=== PATIENT | male | born 1960 | race Two or more races ===

== ENCOUNTER 2017-04-27 13:30 | Emergency (ER) | payer MEDICAID, OTHER ==
[~2017-04-27] VITALS: Ht 167.6 cm; Wt 77.0 kg
[2017-04-27] MEDS ORDERED: SODIUM CHLORIDE 0.9% 1,000 ML IV ONE (17:44)
[2017-04-27] MEDS ORDERED: ONDANSETRON HCL 4MG/2ML VIAL IV STA (17:44)
[2017-04-27] MEDS ORDERED: KETOROLAC 30MG/ML VIAL IV STA (17:44)
[2017-04-27 18:08] LABS: BASOPHILS % 1.5 % (0.0-2.0); EOSINOPHILS % 3.6 % (0.0-5.0); HEMOGLOBIN. 15.7 g/dL (14.0-18.0); LYMPHOCYTES % 23.3 % (20.0-50.0); MEAN CORPUSCULAR HEMOGLOBIN 30.2 pg (28.0-32.0); MEAN CORPUSCULAR VOLUME 88.4 fL (80.0-94.0); MONOCYTES % 9.7 % (2.0-8.0); NEUTROPHILS % 61.9 % (40.0-76.0); PLATELET 188 x1000/uL (130-400); RED BLOOD CELL COUNT 5.21 mill/uL (4.7-6.1)
[2017-04-27 18:18] LABS: CARBON DIOXIDE 28 mEq/L (21-32); CHLORIDE 108 mEq/L (98-107)
[2017-04-27 19:52] VITALS: BP 130/127
== END 2017-04-27 20:05 | disposition home or self-care (01) ==
LOC: ER 16:42
DX: R51 Headache (principal); E11.9 Type 2 diabetes mellitus without complications; H53.8 Other visual disturbances
CPT/HCPCS: 36415; 80053; 82962; 85025; 96374; 96375; 99284; J1885; J2405; J7030; Z7610

== ENCOUNTER 2020-08-16 13:52 | Emergency (ER) | payer MEDICAID ==
[~2020-08-16] VITALS: Ht 170.2 cm; Wt 75.7 kg
[2020-08-16 14:11] VITALS: BP 149/101
== END 2020-08-16 16:28 | disposition home or self-care (01) ==
LOC: ER 13:52
DX: S09.90XA Unspecified injury of head, initial encounter (principal); E11.9 Type 2 diabetes mellitus without complications; I10 Essential (primary) hypertension; W01.0XXA Fall on same level from slipping, tripping and stumbling without subsequent striking against object, initial encounter; Y93.89 Activity, other specified; Y92.524 Gas station as the place of occurrence of the external cause
CPT/HCPCS: 99284

== ENCOUNTER 2023-01-11 18:30 | Emergency (ER) | payer MEDICAID ==
[~2023-01-11] VITALS: Ht 170.2 cm; Wt 72.0 kg
[2023-01-11 18:43] VITALS: BP 151/92
[2023-01-11 19:07] LABS: BASOPHILS % 0.8 % (0.0-2.0); EOSINOPHILS % 3.5 % (0.0-5.0); HEMATOCRIT. 45.4 % (42.0-52.0); HEMOGLOBIN. 15.5 g/dL (14.0-18.0); LYMPHOCYTES % 21.3 % (20.0-50.0); MEAN CORPUSCULAR HEMOGLOBIN 30.4 pg (28.0-32.0); MEAN CORPUSCULAR VOLUME 89.1 fL (80.0-94.0); MEAN PLATELET VOLUME 9.4 fl (7.4-10.4); MONOCYTES % 9.8 % (2.0-8.0); NEUTROPHILS % 64.6 % (40.0-76.0); PLATELET 183 x1000/uL (130-400); RED BLOOD CELL COUNT 5.09 mill/uL (4.7-6.1); RED CELL DISTRIBUTION WIDTH 12.8 % (11.6-14.6)
[2023-01-11 19:15] LABS: PROTHROMBIN TIME 11.1 sec (9.6-11.0)
[2023-01-11 19:26] LABS: CHLORIDE 104 mEq/L (98-107)
== END 2023-01-11 23:23 | disposition left against medical advice (07) ==
LOC: ER 18:30
DX: Z53.21 Procedure and treatment not carried out due to patient leaving prior to being seen by health care provider (principal)
CPT/HCPCS: 36415; 80053; 82962; 85025; 99281

== ENCOUNTER 2023-07-08 05:46 | Emergency (ER) | payer MEDICAID ==
[~2023-07-08] VITALS: Ht 170.2 cm; Wt 72.0 kg
[2023-07-08 05:54] VITALS: O2SAT 100
[2023-07-08] MEDS ORDERED: SODIUM CHLORIDE 0.9% 1,000 ML IV ONE (09:00)
[2023-07-08 09:07] LABS: CHLORIDE 110 mEq/L (98-107); INDEX HEMOLYSI 4 (1-3); INDEX ICTERIC 1 (1-4); INDEX LIPEMIC 1 (1-3); SODIUM 138 mEq/L (136-145)
[2023-07-08 09:08] LABS: BASOPHILS % 0.8 % (0.0-2.0); EOSINOPHILS % 1.5 % (0.0-5.0); HEMATOCRIT. 45.3 % (42.0-52.0); HEMOGLOBIN. 15.3 g/dL (14.0-18.0); LYMPHOCYTES % 17.1 % (20.0-50.0); MEAN CORPUSCULAR HEMOGLOBIN 30.7 pg (28.0-32.0); MEAN CORPUSCULAR HGB CONC 33.8 g/dL (31.0-37.0); MEAN CORPUSCULAR VOLUME 90.8 fL (80.0-94.0); NEUTROPHILS % 72.6 % (40.0-76.0); PLATELET 190 x1000/uL (130-400); RED BLOOD CELL COUNT 4.99 mill/uL (4.7-6.1)
[2023-07-08 09:19] LABS: ALANINE AMINOTRANSFERASE 41 IU/L (13-61); ALBUMIN 3.9 g/dL (3.4-5.0); ASPARTATE AMINOTRANSFERASE 42 IU/L (15-37); BILIRUBIN TOTAL 0.6 mg/dL (0.1-1.0); CALCIUM 8.4 mg/dL (8.5-10.1); CARBON DIOXIDE 28 mEq/L (21-32); CREATININE 0.6 mg/dL (0.6-1.3); GLUCOSE 141 mg/dL (70-105); PROTEIN TOTAL 7.4 g/dL (6.0-8.3); UREA NITROGEN BLOOD 11 mg/dL (7-21)
[2023-07-08 09:46] LABS: POTASSIUM 5.3 mEq/L (3.5-5.1)
[2023-07-08] MEDS ORDERED: VANCOMYCIN 1G PREMIX 200 ML IV SCH (12:30)
[2023-07-08] MEDS ORDERED: CEFTRIAXONE 1GM PREMIX 50 ML IV NR (12:30)
[2023-07-08 14:27] VITALS: BP 125/65; PULSE 65; RESP 14; TEMP 97.7
== END 2023-07-08 14:56 | disposition short-term general hospital (02) ==
LOC: ER 05:46
DX: T25.012A Burn of unspecified degree of left ankle, initial encounter (principal); T79.9XXA Unspecified early complication of trauma, initial encounter; Z20.822 Contact with and (suspected) exposure to COVID-19; X12.XXXA Contact with other hot fluids, initial encounter; Y93.89 Activity, other specified; Y92.89 Other specified places as the place of occurrence of the external cause; Y99.8 Other external cause status
CPT/HCPCS: 80053; 85025; 36415; 96361; 96374; 96375; 99291; 87426; J0696; J3370; J7030; C9803; Z7610 ×4; 99285